=== PATIENT | female | born 1965 | race Caucasian/White ===

== ENCOUNTER 2025-05-29 08:43 | Emergency (ER) | payer OTHER, SELFPAY ==
[2025-05-29 09:05] VITALS: BP 124/57; PULSE 54; RESP 16; TEMP 36.6; O2SAT 100
--- NOTE | 2025-05-29 09:26 | ED.FEMALEGU ---
HPI - Female Genitourinary General Chief complaint: Urogenital-Female Stated complaint: uti Time Seen by Provider: 05/29/25 09:26 Source: patient Mode of arrival: ambulatory Limitations: no limitations History of Present Illness HPI Narrative: 60-year-old female presents with complaint of urinary frequency, dysuria starting yesterday. Afebrile. No other symptoms. Patient concern for urinary tract infection. No recent antibiotic use. All systems reviewed and negative except as noted above. Related Data Home Medications ?Medication ?Instructions ?Recorded ?Confirmed ?Last Taken ?Type estradiol 10 mcg vaginal tablet 10 mcg vaginal DAILY 05/29/25 05/29/25 Unknown History (Yuvafem) Allergies Allergy/AdvReac Type Severity Reaction Status Date / Time No Known Allergies Allergy Verified 05/29/25 09:11 PMFSH Comments At time of signature, agree with nursing past medical, surgical, social and family history. There is no relevant family history pertinent to the presenting complaint. Exam Narrative: GENERAL: This is a well-nourished, well-developed patient, in no apparent distress. HEAD: normocephalic, atraumatic. EYES: PERRL. Sclera clear/white. Vision is grossly intact. EARS: External ears normal NOSE: External nose normal NECK: Neck supple, non-tender without lymphadenopathy, masses or thyromegaly. CARDIOVASCULAR: Regular rate and rhythm without murmurs, gallops, or rubs. RESPIRATORY: Clear to auscultation. Breath sounds equal bilaterally. No wheezes, rales, or rhonchi. SKIN: warm, Dry, intact with no suspicious lesions or rash, good texture and turgor. NEURO: awake, alert, and oriented to person, place and time. There were no obvious focal neurologic abnormalities. EXTREMITIES: No joint tenderness, effusion, or edema noted. Course Course Level of Care: Express Care Visit Vital Signs Vital signs: Vital Signs Temperature 36.6 C 05/29/25 09:05 Pulse Rate 54 L 05/29/25 09:05 Respiratory Rate 16 05/29/25 09:05 Blood Pressure 124/57 L 05/29/25 09:05 Pulse Oximetry 100 05/29/25 09:05 Temperature 36.6 C 05/29/25 09:05 Pulse Rate 54 L 05/29/25 09:05 Respiratory Rate 16 05/29/25 09:05 Blood Pressure 124/57 L 05/29/25 09:05 Pulse Oximetry 100 05/29/25 09:05 Reviewed MDM MDM Narrative Medical decision making narrative: urinalysis positive leukocytes, blood, nitrites. Will treat with antibiotic due to patient's symptoms. urine culture ordered. Patient is well-appearing, nontoxic. Differential Diagnosis Differential Diagnosis: Differential diagnostic considerations for female urogenital? issues include urinary tract infection, bacterial vaginosis, cervicitis, ovarian cyst, vaginitis, STI exposure, ovarian torsion, ectopic , cyst of Bartholin?s gland, cystitis, dysmenorrhea.?? Discharge Plan Discharge Clinical Impression: Urinary tract infection Patient Disposition: Home Condition: Stable Instructions: Antibiotic Form, Urinary Tract Infection in Women (ED) Additional Instructions: Take antibiotic as prescribed until gone. Drink at least 64 oz water a day. See your doctor if symptoms are not improving. If you have severe pain, fever, vomiting to the ER. Patient Language: Chinese Prescriptions: New amoxicillin-pot clavulanate [Augmentin] 500-125 mg tablet 1 tablet PO BID 7 Days Qty: 14 0RF No Action estradiol [Yuvafem] 10 mcg tablet 10 mcg VAGINAL DAILY Follow-up/Referrals: PHYSICIAN NOT ON STAFF,NONSTAFF [Primary Care Provider] Time of Disposition: 09:30
[2025-05-29 09:35] LABS: EDUAAPPEAR Cloudy; EDUABILI Negative (Negative); EDUABLOOD 3+ (Negative); EDUACOLOR1 Yellow; EDUAGLUCOSE Negative (Negative); EDUAKETONE Negative (Negative); EDUALEUKO 3+ (Negative); EDUANITRATE Positive (Negative); EDUAPH 6.0; EDUAPROTEIN 1+ (Negative); EDUASPGRAVITY 1.025; EDUAUROBILI 0.2
== END 2025-05-29 09:30 | disposition home or self-care (01) ==
PROVIDERS: Emergency Provider Nurse Practitioner Family
DX: N39.0 Urinary tract infection, site not specified (principal); Z85.3 Personal history of malignant neoplasm of breast; Z90.10 Acquired absence of unspecified breast and nipple
CPT/HCPCS: 81003; 87077; 87086; 87186; 99203; G0463